=== PATIENT | female | born 1980 | race Two or more races ===

== ENCOUNTER 2016-10-20 18:00 | Emergency (ER) | payer BC ==
[2016-10-20 18:14] VITALS: BP 111/71; PULSE 90; TEMP 99.1; BMI 28.1
[2016-10-20] MEDS ORDERED: DEXAMETHASONE LIQUID 0.5 MG/5 ML 240 ML BULK BOTTLE PO ONE (18:20)
[2016-10-20] MEDS ORDERED: IBUPROFEN 600 MG TABLET (FP) PO ONE ×2 (18:20→18:35)
--- NOTE | 2016-10-20 18:22 | PDOC ---
History of Present Illness <Deirdre Kitchen - Last Filed: 10/20/16 18:22> - General History Source: Patient, Family Exam Limitations: No Limitations - History of Present Illness Initial Comments: 10/20/16 18:39 The patient is a 36 year old female with no significant past medical history who presents to the emergency department today complaining of fever and sore throat for 3 days. The patient state that she has taken tylenol to alleviate symptoms with no significant relief. The patient states that multiple individuals in her family have experienced similar symptoms. The patient just finished a cycle of antibiotics for h pylori approximately 10 days ago. The patient present for further evaluation. The patient denies difficulty breathing, cough, and chest pain. The patient denies nausea, vomiting, and diarrhea Primary Care Physician: Dr. Sri Jones <Leland Tineo - Last Filed: 10/20/16 18:40> - General Chief Complaint: Sore Throat Stated Complaint: SORE THROAT X 3 DAYS Time Seen by Provider: 10/20/16 18:07 Past History - Past Medical History GI Disorders: Yes (H PYLORI- TREATED) - Psycho/Social/Smoking Cessation Hx Anxiety: No Suicidal Ideation: No Smoking History: Never smoked Hx Alcohol Use: No Drug/Substance Use Hx: No Substance Use Type: None <Deirdre Kitchen - Last Filed: 10/20/16 18:22> <Leland Tineo - Last Filed: 10/20/16 18:40> - Past Medical History Allergies/Adverse Reactions: Allergies Allergy/AdvReac Type Severity Reaction Status Date / Time No Known Allergies Allergy Verified 10/20/16 18:08 Home Medications: Ambulatory Orders Amox-Tr/K Cl [Augmentin - 875Mg Tablet] 1 tab PO BID #14 tablet 10/20/16 Review of Systems - Review of Systems Able to Perform ROS?: Yes Comments:: 10/20/16 18:39 GENERAL/CONSTITUTIONAL: (+) Fever. No chills. No weakness. HEAD, EYES, EARS, NOSE AND THROAT: (+) Sore throat. No change in vision. No ear pain or discharge. CARDIOVASCULAR: No chest pain or shortness of breath. RESPIRATORY: No cough, wheezing, or hemoptysis. GASTROINTESTINAL: No nausea, vomiting, diarrhea or constipation. GENITOURINARY: No dysuria, frequency, or change in urination. MUSCULOSKELETAL: No joint or muscle swelling or pain. No neck or back pain. SKIN: No rash NEUROLOGIC: No headache, vertigo, loss of consciousness, or change in strength/ sensation. ENDOCRINE: No increased thirst. No abnormal weight change. HEMATOLOGIC/LYMPHATIC: No anemia, easy bleeding, or history of blood clots. ALLERGIC/IMMUNOLOGIC: No hives or skin allergy. <Leland Tineo - Last Filed: 10/20/16 18:40> *Physical Exam - Vital Signs Last Vital Signs Temp Pulse Resp BP Pulse Ox 99.1 F 90 15 111/71 99 10/20/16 18:03 10/20/16 18:03 10/20/16 18:03 10/20/16 18:03 10/20/16 18:03 - Physical Exam Comments: GENERAL: Awake, alert, and fully oriented, in no acute distress HEAD: No signs of trauma EYES: PERRLA, EOMI, sclera anicteric, conjunctiva clear ENT: Auricles normal inspection, hearing grossly normal, nares patent, oropharynx erythematous without exudates. Moist mucosa NECK: Normal ROM, supple, +B/L anterior cervical lymphadenopathy, JVD, or masses LUNGS: Breath sounds equal, clear to auscultation bilaterally. No wheezes, and no crackles HEART: Regular rate and rhythm, normal S1 and S2, no murmurs, rubs or gallops ABDOMEN: Soft, nontender, normoactive bowel sounds. No guarding, no rebound. No masses EXTREMITIES: Normal range of motion, no edema. No clubbing or cyanosis. No cords, erythema, or tenderness NEUROLOGICAL: Cranial nerves II through XII grossly intact. Normal speech, normal gait SKIN: Warm, Dry, normal turgor, no rashes or lesions noted. <Deirdre Kitchen - Last Filed: 10/20/16 18:22> - Vital Signs Last Vital Signs Temp Pulse Resp BP Pulse Ox 99.1 F 90 15 111/71 99 10/20/16 18:03 10/20/16 18:03 10/20/16 18:03 10/20/16 18:03 10/20/16 18:03 <Leland Tineo - Last Filed: 10/20/16 18:40> ED Treatment Course - Medications Given in the ED: ED Medications Discontinued Medications Generic Name Dose Route Start Last Admin Trade Name Priscilla PRN Reason Stop Dose Admin Dexamethasone 10 mg 10/20/16 18:20 10/20/16 18:37 Decadron Liquid - PO 10/20/16 18:21 10 mg ONCE ONE Administration Ibuprofen 600 mg 10/20/16 18:20 10/20/16 18:37 Motrin - PO 10/20/16 18:21 600 mg ONCE ONE Administration <Leland Tineo - Last Filed: 10/20/16 18:40> Medical Decision Making - Medical Decision Making 10/20/16 18:23 Pt with 3 of 4 centor criteria. Will treat with augmentin, decadron, and ibuprofen. Stable for DC home. <Deirdre Kitchen - Last Filed: 10/20/16 18:22> *DC/Admit/Observation/Transfer - Discharge Dispostion Admit: No <Deirdre Kitchen - Last Filed: 10/20/16 18:22> - Attestations Scribe Attestion: 10/20/16 18:40 Documentation prepared by Leland Tineo, acting as medical coding manager for Deirdre Kitchen MD. <Leland Tineo - Last Filed: 10/20/16 18:40> Diagnosis at time of Disposition: Pharyngitis Qualifiers: Pharyngitis/tonsillitis etiology: unspecified etiology Qualified Code(s): J02.9 - Acute pharyngitis, unspecified - Discharge Dispostion Disposition: HOME Condition at time of disposition: Stable - Prescriptions Prescriptions: Amox-Tr/K Cl [Augmentin - 875Mg Tablet] 1 tab PO BID #14 tablet - Referrals Referrals: Alyssia Mejia [Primary Care Provider] - - Patient Instructions Printed Discharge Instructions: Sore Throat, DI for Pharyngitis/ Tonsillopharyngitis -- Adult
[2016-10-20] MEDS ORDERED: DEXAMETHASONE SOD PHOSPHATE 10 MG/1 ML VIAL ONE (18:35)
== END 2016-10-20 18:43 | disposition home or self-care (01) ==
LOC: FER 18:00
DX: J02.9 Acute pharyngitis, unspecified (principal)
CPT/HCPCS: 99281-25

== ENCOUNTER 2017-04-04 16:16 | Emergency (ER) | payer BC ==
--- NOTE | 2017-04-04 16:26 | PDOC ---
History of Present Illness - General History Source: Patient, Spouse Exam Limitations: No Limitations - History of Present Illness Initial Comments: 04/04/17 17:01 The patient is a 37 year old female, with no significant past medical history, who presents to the emergency department with her with complaints of headache, subjective fever, and painful swallowing for the past 3 days. The patient does not speak Romanian, as per her she feels some associated left ear pain with her fever and diffuse body aches. The patient describes her headache as diffuse and a throbbing sensation in nature. She notes that her symptoms have worsened over the past 2 days. As per she did take 2 tylenol prior to arrival and has felt some relief. She denies chest pain, shortness of breath, headache and dizziness. She denies fever, chills, cough, runny nose, nausea, vomit, diarrhea and constipation. Allergies: None Social history: Never smoked PCP: Dr. Sri Jones ([phone]) <Becka Kong - Last Filed: 04/04/17 17:01> <Quincy Salcedo - Last Filed: 04/04/17 17:10> - General Chief Complaint: Sore Throat Stated Complaint: SORE THROAT AND FEVER AND HEADACHE Time Seen by Provider: 04/04/17 16:26 Past History <Becka Kong - Last Filed: 04/04/17 17:01> - Past Medical History GI Disorders: Yes (H PYLORI- TREATED) - Psycho/Social/Smoking Cessation Hx Anxiety: No Suicidal Ideation: No Smoking History: Never smoked Hx Alcohol Use: No Drug/Substance Use Hx: No Substance Use Type: None <Quincy Salcedo - Last Filed: 04/04/17 17:10> - Past Medical History Allergies/Adverse Reactions: Allergies Allergy/AdvReac Type Severity Reaction Status Date / Time No Known Allergies Allergy Verified 04/04/17 16:18 Home Medications: Ambulatory Orders Ibuprofen 400 mg PO TID PRN #20 tablet 04/04/17 Review of Systems - Review of Systems Able to Perform ROS?: Yes Comments:: 04/04/17 17:01 CONSTITUTIONAL: +Subjective fever. +Body aches, +Diffuse headache Absent: no chills EYES: Absent: visual changes ENT:+Left ear pain, +Painful swallowing Absent: CARDIOVASCULAR: Absent: chest pain, no palpitations RESPIRATORY: Absent: cough, no SOB GI: Absent: abdominal pain, no nausea, no vomiting, no constipation, no diarrhea GENITOURINARY: Absent: dysuria, no frequency, no hematuria MUSKULOSKELETAL: Absent: back pain, no arthralgia, no myalgia SKIN: Absent: rash NEURO: Absent: headache <Becka Kong - Last Filed: 04/04/17 17:01> *Physical Exam - Vital Signs Last Vital Signs Temp Pulse Resp BP Pulse Ox 98.4 F 96 H 16 121/83 99 04/04/17 16:17 04/04/17 16:17 04/04/17 16:17 04/04/17 16:17 04/04/17 16:17 - Physical Exam Comments: 04/04/17 17:02 GENERAL: Well-appearing, well-nourished. No apparent distress. HEENT: The ears are clear, the tympanic membranes are shiny and there is no fluid. The throat is mildly erythematous, but there is no exudate, no swelling, and no masses. The neck is supple with shotty adenopathy nearby. Normocephalic, atraumatic. PERRL, EOM intact. CARDIOVASCULAR: Normal S1, S2. Regular rate and rhythm. PULMONARY: Clear to auscultation bilaterally. ABDOMEN: Soft, non-distended, non-tender. EXTREMITIES: Normal ROM in all four extremities. No gross deformities. SKIN: Warm, dry. No rash NEUROLOGICAL: No focal neurological deficits <Becka Kong - Last Filed: 04/04/17 17:01> ED Treatment Course - ADDITIONAL ORDERS Additional order review: 04/04/17 16:40 Group A Strep Rapid Antigen - Final Throat NEGATIVE FOR THE ANTIGEN OF BETA HEMOLYTIC STREP GROUP A <Becka Kong - Last Filed: 04/04/17 17:01> Medical Decision Making - Medical Decision Making 04/04/17 17:04 Rapid strep is negative. This is most likely a viral illness, mild in severity, symptomatic treatment with ibuprofen, oral fluids, and rest with follow up primary physician if no improvement. <Quincy Salcedo - Last Filed: 04/04/17 17:10> *DC/Admit/Observation/Transfer - Attestations Scribe Attestion: 04/04/17 17:02 Documentation prepared by ELAN Murguia, acting as medical office technology instructor for Quincy Salcedo MD. <Becka Kong - Last Filed: 04/04/17 17:01> - Discharge Dispostion Admit: No <Quincy Salcedo - Last Filed: 04/04/17 17:10> Diagnosis at time of Disposition: Viral upper respiratory infection - Discharge Dispostion Disposition: HOME Condition at time of disposition: Stable - Prescriptions Prescriptions: Ibuprofen 400 mg PO TID PRN #20 tablet PRN Reason: Fever Or Pain - Patient Instructions Printed Discharge Instructions: DI for Viral Pharyngitis
[2017-04-04 16:30] VITALS: BP 121/83; PULSE 96; TEMP 98.4; BMI 28.3
== END 2017-04-04 17:15 | disposition home or self-care (01) ==
LOC: FER 16:16
DX: J06.9 Acute upper respiratory infection, unspecified (principal); B97.89 Other viral agents as the cause of diseases classified elsewhere
CPT/HCPCS: 87070; 87186; 87430; 99281-25

== ENCOUNTER 2017-05-25 14:44 | Emergency (ER) | payer BC ==
[2017-05-25 14:50] VITALS: BP 147/81; PULSE 81; TEMP 99.2; BMI 28.3
--- NOTE | 2017-05-25 14:50 | PDOC ---
History of Present Illness - General History Source: Patient, Family Exam Limitations: Language Barrier - History of Present Illness Initial Comments: 05/25/17 15:14 The patient is a 37 year old female, with no significant past medical history, who presents today complaining of sore throat and headache for 6 days. She reports difficulty swallowing and associated symptoms of stuffy nose and nonproductive cough. She reports a subjective fever yesterday. The patient has been taking Tylenol with mild relief. Denies nausea, vomiting, diarrhea, constipation. Denies ear ache. Allergies: none PCP- Dr. Alyssia Jones [phone] <Glendy Suarez - Last Filed: 05/25/17 15:21> <Deirdre Kitchen - Last Filed: 05/25/17 17:18> - General Chief Complaint: Sore Throat Stated Complaint: SORE THROAT, COLD SX Time Seen by Provider: 05/25/17 14:46 Past History <Glendy Suarez - Last Filed: 05/25/17 15:21> - Past Medical History GI Disorders: Yes (H PYLORI- TREATED) - Psycho/Social/Smoking Cessation Hx Anxiety: No Suicidal Ideation: No Smoking History: Never smoked Have you smoked in the past 12 months: No Information on smoking cessation initiated: No Hx Alcohol Use: No Drug/Substance Use Hx: No Substance Use Type: None <Deirdre Kitchen - Last Filed: 05/25/17 17:18> - Past Medical History Allergies/Adverse Reactions: Allergies Allergy/AdvReac Type Severity Reaction Status Date / Time No Known Allergies Allergy Verified 05/25/17 14:46 Home Medications: Ambulatory Orders Acetaminophen [Tylenol -] 650 mg PO ASDIR 05/25/17 Ibuprofen [Advil -] 200 mg PO ASDIR 05/25/17 Review of Systems - Review of Systems Able to Perform ROS?: Yes Comments:: 05/25/17 15:15 GENERAL/CONSTITUTIONAL: +subjective fever, +headache No chills. No weakness. HEAD, EYES, EARS, NOSE AND THROAT: +sore throat, nasal congestion. No change in vision. No ear pain or discharge. CARDIOVASCULAR: No chest pain or shortness of breath. RESPIRATORY: +nonproductive cough. No wheezing, or hemoptysis. MUSCULOSKELETAL: No joint or muscle swelling or pain. No neck or back pain. SKIN: No rash NEUROLOGIC: No vertigo, loss of consciousness, or change in strength/sensation. ENDOCRINE: No increased thirst. No abnormal weight change. ALLERGIC/IMMUNOLOGIC: No hives or skin allergy. <Glendy Suarez - Last Filed: 05/25/17 15:21> *Physical Exam - Vital Signs Last Vital Signs Temp Pulse Resp BP Pulse Ox 99.2 F 81 18 147/81 99 05/25/17 14:45 05/25/17 14:45 05/25/17 14:45 05/25/17 14:45 05/25/17 14:45 <Glendy Suarez - Last Filed: 05/25/17 15:21> - Vital Signs Last Vital Signs Temp Pulse Resp BP Pulse Ox 99.2 F 81 18 147/81 99 05/25/17 14:45 05/25/17 14:45 05/25/17 14:45 05/25/17 14:45 05/25/17 14:45 - Physical Exam Comments: GENERAL: Awake, alert, and fully oriented, in no acute distress HEAD: No signs of trauma EYES: PERRLA, EOMI, sclera anicteric, conjunctiva clear ENT: Auricles normal inspection, hearing grossly normal, nares patent, oropharynx clear without exudates. Moist mucosa NECK: Normal ROM, supple, +anterior cervical lymphadenopathy, JVD, or masses LUNGS: Breath sounds equal, clear to auscultation bilaterally. No wheezes, and no crackles. Intermittent dry cough HEART: Regular rate and rhythm, normal S1 and S2, no murmurs, rubs or gallops ABDOMEN: Soft, nontender, normoactive bowel sounds. No guarding, no rebound. No masses EXTREMITIES: Normal range of motion, no edema. No clubbing or cyanosis. No cords, erythema, or tenderness NEUROLOGICAL: Cranial nerves II through XII grossly intact. Normal speech, normal gait SKIN: Warm, Dry, normal turgor, no rashes or lesions noted. <Deirdre Kitchen - Last Filed: 05/25/17 17:18> ED Treatment Course - Medications Given in the ED: ED Medications Discontinued Medications Generic Name Dose Route Start Last Admin Trade Name Freq PRN Reason Stop Dose Admin Dexamethasone 10 mg 05/25/17 15:03 05/25/17 15:08 Decadron - PO 05/25/17 15:04 10 mg ONCE ONE Administration Ibuprofen 600 mg 05/25/17 15:03 05/25/17 15:09 Motrin - PO 05/25/17 15:04 600 mg ONCE ONE Administration <Glendy Suarez - Last Filed: 05/25/17 15:21> Medical Decision Making - Medical Decision Making Rapid strep negative. Suspect viral URI. Patient given motrin for pain, decadron for throat inflammation. Stable for DC home. <Deirdre Kitchen - Last Filed: 05/25/17 17:18> *DC/Admit/Observation/Transfer - Attestations Scribe Attestion: 05/25/17 15:16 Documentation prepared by ELAN Delgado, acting as medical laboratory assistant for Deirdre Kitchen MD <Glendy Suarez - Last Filed: 05/25/17 15:21> - Discharge Dispostion Admit: No <Deirdre Kitchen - Last Filed: 05/25/17 17:18> Diagnosis at time of Disposition: Viral upper respiratory infection - Discharge Dispostion Disposition: HOME Condition at time of disposition: Stable - Patient Instructions Printed Discharge Instructions: DI for Viral Upper Respiratory Infection -- Adult
[2017-05-25] MEDS ORDERED: IBUPROFEN 600 MG TABLET (FP) PO ONE ×2 (15:03→15:05)
[2017-05-25] MEDS ORDERED: DEXAMETHASONE 4 MG TABLET (FP) PO ONE (15:03)
[2017-05-25] MEDS ORDERED: DEXAMETHASONE SOD PHOSPHATE 10 MG/1 ML VIAL ONE (15:05)
== END 2017-05-25 15:45 | disposition home or self-care (01) ==
LOC: FER 14:44
DX: J06.9 Acute upper respiratory infection, unspecified (principal)
CPT/HCPCS: 87070; 87430; 99282-25

== ENCOUNTER 2018-10-14 11:59 | Emergency (ER) | payer BC ==
[2018-10-14] MEDS ORDERED: KETOROLAC TROMETHAMINE 30 MG/1 ML VIAL IM ONE (12:07)
[2018-10-14] MEDS ORDERED: RANITIDINE HCL 150 MG TABLET (FP) PO ONE (12:07)
[2018-10-14 12:18] VITALS: BP 133/89; PULSE 95; TEMP 98.1; BMI 25.0
--- NOTE | 2018-10-14 12:21 | PDOC ---
History of Present Illness - General Chief Complaint: Pain Stated Complaint: MUSCULAR SKELETAL PAIN TO CHEST AND BACK Time Seen by Provider: 10/14/18 12:07 History Source: Patient Exam Limitations: No Limitations - History of Present Illness Initial Comments: 10/14/18 12:16 38 year old female with no past medical history presents with atypical chest pain. Pt was out at a wedding all last night. This morning, woke up with reproducible midsternal chest pain. Described as tightness, but no SOB. Denies radiation, nausea, vomiting, diarrhea. Movement and twisting of the upper chest reproduces the pain. Past History - Past Medical History Allergies/Adverse Reactions: Allergies Allergy/AdvReac Type Severity Reaction Status Date / Time No Known Allergies Allergy Verified 05/25/17 14:46 Home Medications: Ambulatory Orders Acetaminophen [Tylenol -] 650 mg PO ASDIR 05/25/17 Ibuprofen [Advil -] 200 mg PO ASDIR 05/25/17 Acetaminophen [Tylenol] 650 mg PO Q4H PRN #20 tablet 10/14/18 Famotidine [Pepcid -] 20 mg PO BID PRN #14 tablet 10/14/18 Naproxen 500 mg PO BID PRN #20 tablet 10/14/18 COPD: Yes GI Disorders: Yes (H PYLORI- TREATED) - Suicide/Smoking/Psychosocial Hx Smoking History: Never smoked Have you smoked in the past 12 months: No Information on smoking cessation initiated: No Hx Alcohol Use: No Drug/Substance Use Hx: No Substance Use Type: None Review of Systems - Review of Systems Able to Perform ROS?: Yes Comments:: 10/14/18 12:18 GENERAL/CONSTITUTIONAL: [No fever or chills. No weakness. No weight change.] HEAD, EYES, EARS, NOSE AND THROAT: [No change in vision. No ear pain or discharge. No sore throat.] CARDIOVASCULAR: [No shortness of breath.] + chest pain RESPIRATORY: [No cough, wheezing, or hemoptysis.] GASTROINTESTINAL: [No nausea, vomiting, diarrhea or constipation. No rectal bleeding.] GENITOURINARY: [No dysuria, frequency, or change in urination.] MUSCULOSKELETAL: [No joint or muscle swelling or pain. No neck or back pain.] SKIN AND BREASTS: [No rash or easy bruising.] NEUROLOGIC: [No headache, vertigo, loss of consciousness, or loss of sensation.] PSYCHIATRIC: [No depression or anxiety.] ENDOCRINE: [No increased thirst. No abnormal weight change.] HEMATOLOGIC/LYMPHATIC: [No anemia, easy bleeding, or history of blood clots.] ALLERGIC/IMMUNOLOGIC: [No hives or skin allergy. No latex allergy.] *Physical Exam - Vital Signs Last Vital Signs Temp Pulse Resp BP Pulse Ox 98.1 F 95 H 16 133/89 100 10/14/18 12:00 10/14/18 12:00 10/14/18 12:00 10/14/18 12:00 10/14/18 12:00 - Physical Exam Comments: 10/14/18 12:20 GENERAL: Awake, alert, and fully oriented, in no acute distress HEAD: No signs of trauma EYES: EOMI, sclera anicteric, conjunctiva clear ENT: Auricles normal inspection, hearing grossly normal, nares patent, NECK: Normal ROM, supple LUNGS: Breath sounds equal, clear to auscultation bilaterally. No wheezes, and no crackles HEART: Regular rate and rhythm, normal S1 and S2, no murmurs, rubs or gallops. Reproducible anterior chest pain to palpation. ABDOMEN: Soft, No guarding, no rebound. No masses. Minimally tender to epigastric. Sanderson sign negative. EXTREMITIES: Normal range of motion, no edema. No clubbing or cyanosis. No cords, erythema, or tenderness NEUROLOGICAL: Cranial nerves II through XII grossly intact. Normal speech, normal gait SKIN: Warm, Dry, normal turgor, no rashes or lesions noted. Moderate Sedation - Procedure Monitoring Vital Signs: Procedure Monitoring Vital Signs Temperature 98.1 F 10/14/18 12:00 Pulse Rate 95 H 10/14/18 12:00 Respiratory Rate 16 10/14/18 12:00 Blood Pressure 133/89 10/14/18 12:00 O2 Sat by Pulse Oximetry (%) 100 10/14/18 12:00 Heart Score/ECG Review #1 ECG reviewed & interpreted by me at: 12:30 10/14/18 12:26 NSR 72, no std/josé miguel, normal axis, normal intervals, QTC 429 msec ED Treatment Course - LABORATORY CBC & Chemistry Diagram: 10/14/18 12:21 10/14/18 12:21 Medical Decision Making - Medical Decision Making 10/14/18 12:21 Vital Signs Temp Pulse Resp BP Pulse Ox 98.1 F 95 H 16 133/89 100 10/14/18 12:00 10/14/18 12:00 10/14/18 12:00 10/14/18 12:00 10/14/18 12:00 I suspect atypical chest pain: costochronditis and/or gastritis. Will obtain ECG and troponin. Trial NSAIDS and GERD medications, If workup negative and patient feels better, I feel comfortable d/cing patient home. 10/14/18 13:23 CBC, BMP 10/14/18 12:21 10/14/18 12:21 CMP Sodium 135 mmol/L (136-145) L 10/14/18 12:21 Potassium 4.0 mmol/L (3.5-5.1) 10/14/18 12:21 Chloride 105 mmol/L (98-107) 10/14/18 12:21 Carbon Dioxide 24 mmol/L (22-28) 10/14/18 12:21 Anion Gap 6 MMOL/L (8-16) L 10/14/18 12:21 BUN 14 mg/dl (7-18) 10/14/18 12:21 Creatinine 0.6 mg/dl (0.6-1.3) 10/14/18 12:21 Creat Clearance w eGFR > 60 (>60) 10/14/18 12:21 Random Glucose 92 mg/dl (74-106) 10/14/18 12:21 Calcium 8.4 mg/dl (8.4-10.2) 10/14/18 12:21 Total Bilirubin 1.0 mg/dl (0.2-1.0) 10/14/18 12:21 AST 17 U/L (10-42) 10/14/18 12:21 ALT 15 U/L (10-40) 10/14/18 12:21 Alkaline Phosphatase 31 U/L (32-92) L 10/14/18 12:21 Troponin I < 0.03 ng/ml (0.00-0.06) 10/14/18 12:21 Total Protein 7.0 g/dl (6.4-8.3) 10/14/18 12:21 Albumin 4.0 g/dl (3.5-5.0) 10/14/18 12:21 ECG is reassuring. The patient reported that the medications helped her. Massaging also helped her as well. Pt has been recently trying to do sit ups and is quite sore. Imp: chostochondritis. However, pt is also asking for pepcid when she takes naproxen at home. I discussed the physical exam findings, ancillary test results and final diagnoses with the patient. I answered all of the patient's questions. The patient was satisfied with the care received and felt comfortable with the discharge plan and treatment plan. The patient will call their primary care physician within 24 hours to arrange follow-up and will return to the Emergency Department with any new, persistant or worsening symptoms. *DC/Admit/Observation/Transfer Diagnosis at time of Disposition: Atypical chest pain - Discharge Dispostion Disposition: HOME Condition at time of disposition: Stable Decision to Admit order: No - Prescriptions Prescriptions: Acetaminophen [Tylenol] 650 mg PO Q4H PRN #20 tablet PRN Reason: Pain Famotidine [Pepcid -] 20 mg PO BID PRN #14 tablet PRN Reason: GERD Naproxen 500 mg PO BID PRN #20 tablet PRN Reason: Pain - Referrals - Patient Instructions Printed Discharge Instructions: DI for Costochondritis Additional Instructions: Please take 500 mg naproxen every 12 hours and/or 650 mg tylenol every 4 hours as needed for pain. For acid reflux, take 20 mg pepcid every 12 hours as needed. It may take several days before your symptoms improve. - Post Discharge Activity
[2018-10-14] MEDS ORDERED: RANITIDINE HCL 150 MG TABLET (FP) ONE (12:23)
[2018-10-14] MEDS ORDERED: KETOROLAC TROMETHAMINE 30 MG/1 ML VIAL ONE (12:23)
[2018-10-14 12:39] LABS: BASO % 0.8 % (0-2.0); EOS % 7.2 % (0-4.5); HEMATOCRIT 39.3 % (32.4-45.2); HEMOGLOBIN 13.5 GM/dl (10.7-15.3); MCH 31.7 pg (25.7-33.7); MCHC 34.3 g/dl (32.0-36.0); MEAN CELL VOLUME 92.2 fl (80-96); MEAN PLT VOLUME 8.7 fl (7.5-11.1); PLATELET COUNT 213 K/MM3 (134-434); RBC 4.26 M/mm3 (3.60-5.2); RDW 11.8 % (11.6-15.6); WHITE BLOOD COUNT 5.9 K/mm3 (4.0-10.8)
[2018-10-14 12:46] LABS: ALK PHOS 31 U/L (32-92); ANION GAP 6 MMOL/L (8-16); BLOOD UREA NITROGEN 14 mg/dl (7-18); CALCIUM 8.4 mg/dl (8.4-10.2); CHLORIDE 105 mmol/L (98-107); CO2 24 mmol/L (22-28); CREATININE 0.6 mg/dl (0.6-1.3); GLUCOSE,RANDOM 92 mg/dl (74-106); SGOT/AST 17 U/L (10-42); SGPT/ALT 15 U/L (10-40); SODIUM 135 mmol/L (136-145)
[2018-10-14] MEDS ORDERED: ACETAMINOPHEN 325 MG TABLET (FP) PO ONE (13:21)
[2018-10-14] MEDS ORDERED: ACETAMINOPHEN 325 MG TABLET (FP) ONE (13:25)
--- NOTE | 2018-10-15 13:28 | EKG ---
Test Reason : Blood Pressure : / mmHG Vent. Rate : 072 BPM Atrial Rate : 072 BPM P-R Int : 178 ms QRS Dur : 084 ms QT Int : 392 ms P-R-T Axes : 049 041 046 degrees QTc Int : 429 ms NORMAL SINUS RHYTHM NORMAL ECG NO PREVIOUS ECGS AVAILABLE Confirmed by PAUL CROCKER MD ([id number]) on 10/15/2018 1:28:07 PM Referred By: LUISITO Confirmed By:PAUL CROCKER MD
== END 2018-10-14 13:39 | disposition home or self-care (01) ==
LOC: FER 11:59
PROC: 3E0233Z Introduction of Anti-inflammatory into Muscle, Percutaneous Approach (ICD-10-PCS; principal; 2018-10-14)
DX: R07.89 Other chest pain (principal)
CPT/HCPCS: 36415; 80053; 84484; 85025; 93005; 99283-25